=== PATIENT | male | born 1975 | race Hispanic/Latino ===

== ENCOUNTER 2018-06-14 10:37 | Outpatient (CLI) | payer BC ==
--- NOTE | 2018-06-14 11:26 | XRay Report ---
CERVICAL SPINE SERIES THREE VIEWS: 06/14/18 10:37:00 CLINICAL: Cervical radicular pain. FINDINGS: Exaggerated cervical lordosis which may be positional or related to neck pain at the time of exam. Normal vertebral body height and alignment through T1. Mild degenerative disc disease at C5-6 and C6-7 with minimal narrowing of the disc space and small osteophytes. Anterior osteophytes at C5-6 and both anterior and posterior osteophytes at C6-7. Minimal facet joint disease. Normal odontoid and C1. No fracture. Normal soft tissues. IMPRESSION: Mild degenerative disc disease at C5-6 and C6-7.
== END 2018-06-14 10:38 | disposition home or self-care (01) ==
LOC: SPVIMAG 10:37
PROVIDERS: ATTEND Internal Medicine
DX: M50.322 Other cervical disc degeneration at C5-C6 level (principal); M48.02 Spinal stenosis, cervical region; M25.78 Osteophyte, vertebrae
CPT/HCPCS: 72040

== ENCOUNTER 2018-06-23 08:05 | Outpatient (CLI) | payer BC ==
--- NOTE | 2018-06-23 13:08 | Magnetic Resonance Report ---
MRI CERVICAL SPINE WITHOUT CONTRAST: 06/23/18 CLINICAL: Cervical radicular pain. TECHNIQUE: Sagittal T1,T2 and STIR and axial gradient T2* sequences on a 1.5 Erum magnet. FINDINGS:Normal vertebral body height, alignment and disc spaces. Normal marrow signal. Uniform decreased T2 disc signal at all levels. The cerebellar tonsils are in normal position. The spinal cord is normal size with normal signal. C2-3: Intact. C3-4:Intact disc. Left facet hypertrophy producing mild left neural foraminal narrowing. C4-5: Intact disc. No neural foraminal narrowing. C5-6:Small focal central disc protrusion producing mild effacement of the thecal sac but no cord compression. Small anterior posterior osteophytes. A small right uncal osteophyte and mild right neural foraminal narrowing. C6-7:Small focal central disc protrusion producing mild effacement of the thecal sac but no cord compression. Small anterior osteophytes. No neural foraminal narrowing. C7-T1:Intact. IMPRESSION: 1. Mild degenerative disc disease with small focal central disc protrusions producing mild spinal canal stenosis at C5-6 and C6-7. 2. Mild left neural foraminal narrowing at C3-4 secondary secondary to on left facet hypertrophy.3. Mild right neural foraminal narrowing at C5-6 secondary to a small uncal osteophyte. 4. No cord lesion.
== END 2018-06-23 08:06 | disposition home or self-care (01) ==
LOC: SPVIMAG 08:05
PROVIDERS: ATTEND Internal Medicine
DX: M50.322 Other cervical disc degeneration at C5-C6 level (principal); M48.02 Spinal stenosis, cervical region; M50.222 Other cervical disc displacement at C5-C6 level; M25.78 Osteophyte, vertebrae
CPT/HCPCS: 72141